=== PATIENT | male | born 1980 | race African-American/Black ===

== ENCOUNTER 2017-02-07 22:39 | Inpatient (IN) | payer MEDICAID, OTHER ==
[~2017-02-07] VITALS: Ht 170.2 cm; Wt 82.2 kg
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
[2017-02-07] MEDS ORDERED: SOD CHLORIDE 0.9% 1,000 ML IV STA (23:33)
[2017-02-08] MEDS ORDERED: ONDANSETRON 4 MG INJ IV ONE
[2017-02-08] MEDS ORDERED: morphine 2 MG INJ IV ONE
[2017-02-08 00:32] LABS: ADD UMIC YES; URINE BILIRUBIN (Dip) NEGATIVE (NEGATIVE); URINE BLOOD (Dip) 3+ (NEGATIVE); URINE COLOR DK. RED (YELLOW); URINE GLUCOSE (Dip) NEGATIVE (NEGATIVE); URINE KETONES (Dip) TRACE (NEGATIVE); URINE LEUKOCYTE ESTERASE (Dip) NEGATIVE (NEGATIVE); URINE NITRITE (Dip) NEGATIVE (NEGATIVE); URINE TOTAL PROTEIN (Dip) 2+ (NEGATIVE); URINE UROBILINOGEN (Dip) 1.0 E.U./dL (0.1-1.0)
--- NOTE | 2017-02-08 00:34 | RADRPT ---
PROCEDURE: Portable chest x-ray. CLINICAL INDICATION: Injury, chest pain. TECHNIQUE: Portable AP view of the chest. COMPARISON: None. FINDINGS: There is mild bibasilar atelectasis. No pulmonary edema or conolidation is identified. The cardiac silhouette is not enlarged. No pleural effusion is seen. There is no pneumothorax. No fracture i s identified. IMPRESSION: 1. No radiographic evidence of traumatic chest injury. RPTAT: HTAR .Julius Kinsey MD, MD Date Time Electronically viewed and signed by .Julius Kinsey MD, MD on 02/08/2017 00:34 .R/
[2017-02-08 00:42] LABS: BACTERIA,URINE OCCASIONAL; SQUAMOUS EPITHELIAL CELL,UR OCCASIONAL; URINE RBCS >200 /HPF (0)
--- NOTE | 2017-02-08 00:44 | RADRPT ---
PROCEDURE: CT Brain without contrast. CLINICAL INDICATION: Trauma TECHNIQUE: A CT of the brain was performed utilizing axial imaging from the skull base through the vertex without IV contrast. Multiplanar reformatted images were made. Images were reviewed on a [employer] workstation. The CTDIvol is 45.01 mGy and the DLP is 810.25 mGycm. One or more the following dose reduction techniques were utilized: Automated exposure control, adjus tment of the mA/ or kV according to patient's size, or use of iterative reconstruction technique. COMPARISON: None FINDINGS: There is no intracranial hemorrhage, mass effect, or midline shift. No extra-axial fluid collection is seen. The ventricles and sulci are normal in size and configuration. The density of the brain is normal, and the rosales white matter differentiation appears well-preserved. The visualized paranasal sinuses and osseous structures are grossly unremarkable. IMPRESSION: 1. No evidence of acute intracranial pathology. 2. The brain is normal in appearance. RPTAT: HJES .Alvin Singh MD, MD Date Time Electronically viewed and signed by .Alvin Singh MD, MD on 02/08/2017 00:44 .S/
--- NOTE | 2017-02-08 00:54 | RADRPT ---
PROCEDURE: CT abdomen and pelvis without contrast. CLINICAL INDICATION: Trauma TECHNIQUE: Noncontrast CT examination of the abdomen and pelvis, with axial, sagittal and coronal reformatted images. CTDI: 10.94 mGy and DLP: 718.33 mGy-cm. COMPARISON: Plain film chest and lumbar spine plain film series dated today, earlier in the [facility]. FINDINGS: CT abdomen: Bilateral dependent lower lobe patchy air space disease versus atelectasis. Otherwise, the lung bas es are clear. The heart size is mildly enlarged, without pericardial thickening or effusion. The liver is normal in size and density without focal mass or intrahepatic biliary dilatation. The spleen is normal in size and homogeneous in density. The stomach is partially collapsed, but is álvaro ssly unremarkable. The pancreas as visualized is normal. The gallbladder is surgically absent; and biliary tree is unremarkable and there is no evidence for biliary dilatation. The adrenal glands a re symmetric and normal. The kidneys are symmetrically unremarkable as well. No renal calculus or o bstructive uropathy or mass lesion is seen. The aorta is of normal caliber. No aortic vascular calcifications are present. There is no retrope ritoneal lymphadenopathy. The regino hepatis region is clear. The bowel and mesentery, as visualize d, are equally unremarkable. Question remote surgical changes at the midline ventral abdominal wall. CT pelvis: Small bowel contain solid stool in the distal and terminal ileum, compatible with small bowel motili ty disorder. The pelvic organs are otherwise normal. The pelvic sidewalls and inguinal regions are clear. The sigmoid colon and rectum are all unremarkable. No mass, lymphadenopathy, or free fluid is seen. No acute inflammation is seen. The appendix is surgically absent. The surrounding osseous structures are remarkable for mild degenerative spondylosis of the spine. N o osteolytic or osteoblastic lesion is detected. IMPRESSION: 1. Nonspecific small bowel motility disorder. 2. Tube. Cardiomegaly. 3. Nonspecific patchy air space disease versus atelectasis at the bilateral dependent lower lobes. 4. Otherwise, no acute injury in the abdomen or pelvis. RPTAT: UU Physician Lalita Date Time Electronically viewed and signed by Physician Lalita on 02/08/2017 00:54 RS/
[2017-02-08 01:06] VITALS: TEMP 98.3
[2017-02-08] MEDS ORDERED: HYDROmorphONE 1 MG/ML SYG IV STA ×2 (01:36→03:56)
[2017-02-08 01:44] LABS: ADD SCAN DIFF NO
[2017-02-08 01:46] LABS: BASOPHILS % 0.2 % (0.0-2.0); EOSINOPHILS # 0.1 10^3/ul (0.0-0.5); EOSINOPHILS % 1.2 % (0.0-7.0); HEMATOCRIT 35.5 % (42.0-52.0); HEMOGLOBIN 12.2 g/dl (14.0-18.0); LYMPHOCYTES % 25.4 % (15.0-51.0); MEAN CORPUSCULAR HEMOGLOBIN 28.8 pg (29.0-33.0); MEAN CORPUSCULAR HGB CONC 34.4 g/dl (32.0-37.0); MEAN CORPUSCULAR VOLUME 83.7 fl (82.0-101.0); MEAN PLATELET VOLUME 11.1 fl (7.4-10.4); MONOCYTE # 0.2 10^3/ul (0.3-0.9); MONOCYTES % 4.7 % (0.0-11.0); NEUTROPHIL # 2.8 10^3/ul (1.6-7.5); NEUTROPHILS % 68.3 % (39.0-77.0); PLATELET COUNT 115 10^3/UL (140-415); RED BLOOD COUNT 4.24 10^6/ul (4.70-6.10); RED CELL DISTRIBUTION WIDTH 13.8 % (11.5-14.5); WHITE BLOOD COUNT 4.1 10^3/ul (4.8-10.8)
[2017-02-08 01:49] LABS: INR 0.89; PT RATIO 0.9
[2017-02-08 01:50] LABS: PARTIAL THROMBOPLASTIN TIME 27.5 Sec (25.0-35.0)
[2017-02-08 02:08] LABS: ALBUMIN 3.9 g/dl (3.3-4.9); ALBUMIN/GLOBULIN RATIO 1.18; CALCIUM 9.1 mg/dl (8.4-10.2); CREATININE 0.75 mg/dl (0.61-1.24); POTASSIUM 3.6 mmol/L (3.5-5.1); TOTAL PROTEIN 7.2 g/dl (6.1-8.1)
--- NOTE | 2017-02-08 02:41 | RADRPT ---
PROCEDURE: Lumbar Spine. CLINICAL INDICATION: Trauma, back pain. TECHNIQUE: Three views of the lumbar spine. COMPARISON: None available FINDINGS: There is minimal levoscoliosis. The lumbar lordosis is preserved without spondylolisthesis. The nisreen tebral body heights are maintained. No acute fracture or subluxation is seen. There are no signific ant degenerative changes. The patient is status post cholecystectomy. Additional surgical clips are noted in the left upper quadrant. IMPRESSION: 1. No acute fracture or subluxation. 2. Minimal levoscoliosis. RPTAT: HTAR .Julius Kinsey MD, Date Time Electronically viewed and signed by .Julius Kinsey MD, on 02/08/2017 02:41 .R/
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
[2017-02-08 04:45] VITALS: BP 141/85; PULSE 69; RESP 18
[2017-02-08 05:14] VITALS: Ht 170.2 cm; Wt 82.2 kg
[2017-02-08] MEDS ORDERED: ACETAMINOPHEN 325 MG TAB PO PRN (06:00)
[2017-02-08] MEDS ORDERED: ONDANSETRON 4 MG INJ IV PRN (06:00)
[2017-02-08] MEDS ORDERED: morphine 4 MG/ML VIAL IV PRN ×2 (06:00→10:00)
[2017-02-08] MEDS ORDERED: HYDROmorphONE 1 MG/ML SYG IM STA (06:08)
[2017-02-08] MEDS: SOD CHLORIDE 0.9% 1,000 ML IV SCH ×3 (06:23→22:00)
[2017-02-08] MEDS ORDERED: HYDROCODONE/APAP (10/325) TAB PO PRN (06:30)
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
--- NOTE | 2017-02-08 08:18 | RADRPT ---
PROCEDURE: XR thoracic spine. CLINICAL INDICATION: Back pain TECHNIQUE: AP and lateral radiographs of the thoracic spine are available for review. COMPARISON: None. FINDINGS: . The thoracic spine is normal in mineralization, architecture and alignment. No fractures or osseous lesions are identified. The disk spaces are unremarkable. The soft tissues are unremarkable. IMPRESSION: Unremarkable examination. RPTAT: HGDB .Felice Marroquin MD, Date Time Electronically viewed and signed by .Felice Marroquin MD, on 02/08/2017 08:17 .B/
[2017-02-08 09:20] VITALS: BP 119/68; PULSE 77
[2017-02-08] MEDS: morphine (ER) 15 MG TAB PO SCH ×2 (09:22→20:24)
[2017-02-08] MEDS: HYDROmorphONE 1 MG/ML SYG IV PRN ×4 (13:03→22:12)
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
[2017-02-08 14:53] LABS: HEMATOCRIT 33.5 % (42.0-52.0); HEMOGLOBIN 11.2 g/dl (14.0-18.0)
[2017-02-08] MEDS ORDERED: DOCUSATE SODIUM 100 MG CAP PO SCH (15:00)
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
[2017-02-08 19:31] LABS: HEMATOCRIT 33.8 % (42.0-52.0); HEMOGLOBIN 11.2 g/dl (14.0-18.0)
[2017-02-08 20:35] VITALS: BP 122/67; RESP 18
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
== END 2017-02-08 22:40 | disposition left against medical advice (07) | DRG 696 ==
LOC: FTE 22:39 → EEVIPCON 02-08 03:47 → PP2 02-08 03:47
PROVIDERS: ADMIT Internal Medicine; ATTEND Internal Medicine
DX: R31.0 Gross hematuria (principal); D69.6 Thrombocytopenia, unspecified; Z90.49 Acquired absence of other specified parts of digestive tract; D72.819 Decreased white blood cell count, unspecified; D64.9 Anemia, unspecified; Z91.041 Radiographic dye allergy status; F17.210 Nicotine dependence, cigarettes, uncomplicated; Z87.828 Personal history of other (healed) physical injury and trauma
CPT/HCPCS: 36415; 70450; 71010; 72072; 72100; 72125; 74176; 80053; 81001; 82962; 83690; 85014; 85018; 85025; 85610; 85730; 86850; 86900; 86901; 96374; 96375; 96376; J1170; J2270; J2405; J7030